=== PATIENT | male | born 1955 | race African-American/Black ===

== ENCOUNTER 2016-08-27 13:22 | Inpatient (IN) | payer OTHER ==
[~2016-08-27] VITALS: Ht 175.3 cm; Wt 60.3 kg
[2016-08-27] MEDS ORDERED: KETOROLAC 30MG/ML VIAL IV STA (15:07)
[2016-08-27] MEDS ORDERED: SODIUM CHLORIDE 0.9% 1,000 ML IV ONE ×2 (15:07→16:30)
[2016-08-27] MEDS ORDERED: VANCOMYCIN 1 G PREMIX 200 ML IV ONE (15:15)
[2016-08-27] MEDS ORDERED: PIPERACILLIN SODIUM/TAZOBACTAM 4.5 G in DEXT 5% WATER 100 ML IV ONE (15:15)
[2016-08-27 15:45] LABS: BASOPHILS % 0.4 % (0.0-2.0); EOSINOPHILS % 0.1 % (0.0-5.0); HEMATOCRIT. 31.3 % (42.0-52.0); LYMPHOCYTES % 12.9 % (20.0-50.0); MEAN CORPUSCULAR HEMOGLOBIN 26.1 pg (28.0-32.0); MEAN CORPUSCULAR VOLUME 81.5 fL (80.0-94.0); MEAN PLATELET VOLUME 7.8 fl (7.4-10.4); MONOCYTES % 7.6 % (2.0-8.0); PLATELET 378 x1000/uL (130-400); RED BLOOD CELL COUNT 3.84 mill/uL (4.7-6.1); WHITE BLOOD COUNT 18.1 x1000/uL (4.5-11.0)
[2016-08-27 15:48] LABS: CHLORIDE 91 mEq/L (98-107); INDEX HEMOLYSI 1 (1-3); INDEX ICTERIC 1 (1-4); INDEX LIPEMIC 1 (1-3)
[2016-08-27 15:50] LABS: INR 1.3
[2016-08-27 15:51] LABS: ALBUMIN 2.3 g/dL (3.4-5.0); ANION GAP 16; CALCIUM 8.7 mg/dL (8.5-10.1); CARBON DIOXIDE 25 mEq/L (21-32); UREA NITROGEN BLOOD 20 mg/dL (7-21)
[2016-08-27 15:53] LABS: ETHANOL BLOOD < 10 mg/dL
[2016-08-27 15:54] LABS: ALANINE AMINOTRANSFERASE 10 IU/L (13-61); eGFR > 60 mL/min (>60)
[2016-08-27 16:01] LABS: LACTIC ACID 2.8 mmol/L (0.4-2.0)
[2016-08-27 16:52] LABS: CLARITY URINE CLEAR (CLEAR); COLOR URINE YELLOW (YELLOW); GLUCOSE URINE 3+ (NEGATIVE); KETONES URINE NEGATIVE (NEGATIVE); LEUKOCYTE ESTERASE URINE NEGATIVE (NEGATIVE); NITRITE URINE NEGATIVE (NEGATIVE); OCCULT BLOOD URINE NEGATIVE (NEGATIVE); PH URINE 5.5 (4.5-8.0); PROTEIN URINE NEGATIVE (NEGATIVE); SPECIFIC GRAVITY URINE 1.028 (1.005-1.030); UROBILINOGEN URINE 0.2 E.U./dL (0.2-1.0)
[2016-08-27 16:54] LABS: BACTERIA URINE NONE SEEN; CALCIUM PHOSPHATE CRYSTALS UR NONE SEEN /lpf; RBC URINE NONE SEEN /hpf (0-2); SQUAMOUS EPITHELIAL CELL URINE NONE SEEN /lpf (RARE/1+); WAXY CASTS URINE NONE SEEN /lpf; WBC URINE NONE SEEN /hpf (0-2); YEAST URINE NONE SEEN
[2016-08-27 17:04] LABS: *AMPHETAMINES SCREEN URINE NEGATIVE (NEGATIVE); *BARBITURATES SCREEN URINE NEGATIVE (NEGATIVE); *BENZODIAZEPINES SCREEN URINE NEGATIVE (NEGATIVE); *COCAINE SCREEN URINE NEGATIVE (NEGATIVE); CANNABINOID URINE SCREEN NEGATIVE (NEGATIVE); ECSTASY MDMA SCREEN URINE NEGATIVE (NEGATIVE); METHADONE URINE SCREEN NEGATIVE (NEGATIVE); OPIATES URINE SCREEN PRESUMTIVE POSITIVE (NEGATIVE); PHENCYCLIDINE URINE SCREEN PRESUMTIVE POSITIVE (NEGATIVE)
[2016-08-27] MEDS ORDERED: INSULIN REGULAR (HUMULIN R) 300UNITS/3ML SUBCUT ONE (18:45)
[2016-08-27] MEDS ORDERED: MORPHINE SULFATE 2 MG/ML CPJ (NOT FOR IM USE) IV PRN (19:45)
[2016-08-27] MEDS ORDERED: ONDANSETRON HCL 4MG/2ML VIAL IV PRN (19:45)
[2016-08-27] MEDS ORDERED: IPRATROPIUM/ALBUTEROL 0.5-3(2.5)MG/3ML NEB INH PRN (19:45)
[2016-08-27] MEDS ORDERED: CLONIDINE 0.1MG TABLET PO PRN (19:45)
[2016-08-27] MEDS: SODIUM CHLORIDE 0.9% 1,000 ML IV SCH (20:19)
[2016-08-27] MEDS ORDERED: DEXTROSE 50% WATER 50ML SYRINGE IV PRN (21:00)
[2016-08-27] MEDS ORDERED: CEFTRIAXONE 2 G PREMIX 50 ML IV NR (21:00)
[2016-08-27 21:15] VITALS: BP 118/70
[2016-08-27] MEDS: BLOOD SUGAR DIAGNOSTIC STRIP TEST SCH (21:36)
[2016-08-27] MEDS: MORPHINE SULFATE 2 MG/ML CPJ (NOT FOR IM USE) IV PRN (21:44)
[2016-08-27] MEDS ORDERED: INSULIN DETEMIR UD 100 UNITS/ML SYR SUBCUT SCH (22:00)
[2016-08-27] MEDS ORDERED: PHEN100C4 PO (22:11)
[2016-08-27] MEDS ORDERED: INSU3INS6 SUBCUT (22:11)
[2016-08-27] MEDS ORDERED: CLON1TAB PO (22:11)
[2016-08-27] MEDS ORDERED: POTASSIUM CHLORIDE 20MEQ TABLET SR PO NR (22:15)
[2016-08-27] MEDS: INSULIN LISPRO 100 UNITS/ML SUBCUT SCH (22:46)
[2016-08-27] MEDS: ENOXAPARIN 40MG/0.4ML SYR SUBCUT SCH (22:47)
[2016-08-27] MEDS: CEFTRIAXONE 2 G in DEXTROSE 5% WATER 50 ML IV SCH (22:47)
[2016-08-27] MEDS: PHENYTOIN SODIUM EXTENDED 100MG CAPSULE PO SCH (22:47)
[2016-08-27] MEDS ORDERED: CEFTRIAXONE 2 G PREMIX 50 ML IV SCH (23:00)
[2016-08-28] VITALS: BP 108/56
[2016-08-28 04:00] VITALS: BP 108/69
[2016-08-28] MEDS: ACETAMINOPHEN 325MG TABLET PO PRN (04:30)
[2016-08-28] MEDS: SODIUM CHLORIDE 0.9% 1,000 ML IV SCH (05:46)
[2016-08-28] MEDS: BLOOD SUGAR DIAGNOSTIC STRIP TEST SCH ×4 (05:50→21:00)
[2016-08-28] MEDS: MORPHINE SULFATE 2 MG/ML CPJ (NOT FOR IM USE) IV PRN ×2 (06:25→12:21)
[2016-08-28] MEDS: INSULIN LISPRO 100 UNITS/ML SUBCUT SCH ×4 (06:29→22:13)
[2016-08-28 08:00] VITALS: BP 113/69
[2016-08-28 08:02] LABS: CHLORIDE 106 mEq/L (98-107); INDEX HEMOLYSI 1 (1-3); INDEX ICTERIC 1 (1-4); INDEX LIPEMIC 1 (1-3)
[2016-08-28 08:06] LABS: BASOPHILS % 0.5 % (0.0-2.0); DIFFERENTIAL COMMENT 0; EOSINOPHILS % 1.6 % (0.0-5.0); HEMATOCRIT. 28.3 % (42.0-52.0); HEMOGLOBIN. 9.1 g/dL (14.0-18.0); LYMPHOCYTES % 18.4 % (20.0-50.0); MEAN CORPUSCULAR HEMOGLOBIN 25.5 pg (28.0-32.0); MEAN CORPUSCULAR HGB CONC 32.3 g/dL (31.0-37.0); MEAN PLATELET VOLUME 7.6 fl (7.4-10.4); MONOCYTES % 9.2 % (2.0-8.0); NEUTROPHILS % 70.3 % (40.0-76.0); PLATELET 406 x1000/uL (130-400); RED BLOOD CELL COUNT 3.58 mill/uL (4.7-6.1); RED CELL DISTRIBUTION WIDTH 16.9 % (11.6-14.6)
[2016-08-28 08:07] LABS: ANION GAP 12; CARBON DIOXIDE 24 mEq/L (21-32); UREA NITROGEN BLOOD 21 mg/dL (7-21); eGFR > 60 mL/min (>60)
[2016-08-28] MEDS: CLONAZEPAM 1MG TABLET PO SCH ×2 (08:57→16:36)
[2016-08-28] MEDS: PHENYTOIN SODIUM EXTENDED 100MG CAPSULE PO SCH ×2 (08:57→16:36)
[2016-08-28 12:00] VITALS: BP 116/66
[2016-08-28] MEDS ORDERED: INSULIN LISPRO 100 UNITS/ML SUBCUT NR (12:15)
[2016-08-28] MEDS ORDERED: LIDOCAINE HCL 1% 20ML VIAL (Pyxis) INJ INFIL NR (14:30)
[2016-08-28 16:00] VITALS: BP 160/92
[2016-08-28] MEDS: VANCOMYCIN 750 MG PREMIX 150 ML IV SCH (16:36)
[2016-08-28 20:00] VITALS: BP 128/80
[2016-08-28] MEDS ORDERED: INSULIN DETEMIR UD 100 UNITS/ML SYR SUBCUT SCH (22:00)
[2016-08-28] MEDS: ENOXAPARIN 40MG/0.4ML SYR SUBCUT SCH (22:05)
[2016-08-28] MEDS: CEFTRIAXONE 2 G in DEXTROSE 5% WATER 50 ML IV SCH (22:05)
[2016-08-29] VITALS (7 sets, daily range): BP systolic 111–136; BP diastolic 73–87
[2016-08-29] MEDS: VANCOMYCIN 750 MG PREMIX 150 ML IV SCH ×2 (00:40→10:00)
[2016-08-29] MEDS: BLOOD SUGAR DIAGNOSTIC STRIP TEST SCH ×4 (06:35→20:49)
[2016-08-29] MEDS: INSULIN LISPRO 100 UNITS/ML SUBCUT SCH ×4 (06:35→20:46)
[2016-08-29] MEDS: PHENYTOIN SODIUM EXTENDED 100MG CAPSULE PO SCH ×3 (09:00→16:36)
[2016-08-29] MEDS: CLONAZEPAM 1MG TABLET PO SCH ×3 (09:00→16:36)
[2016-08-29] MEDS: MORPHINE SULFATE 2 MG/ML CPJ (NOT FOR IM USE) IV PRN ×3 (10:13→20:20)
[2016-08-29 10:52] LABS: BASOPHILS % 0.6 % (0.0-2.0); DIFFERENTIAL COMMENT 0; EOSINOPHILS % 3.6 % (0.0-5.0); HEMATOCRIT. 28.1 % (42.0-52.0); HEMOGLOBIN. 9.1 g/dL (14.0-18.0); LYMPHOCYTES % 28.3 % (20.0-50.0); MEAN CORPUSCULAR HEMOGLOBIN 25.9 pg (28.0-32.0); MEAN CORPUSCULAR HGB CONC 32.4 g/dL (31.0-37.0); MEAN CORPUSCULAR VOLUME 79.7 fL (80.0-94.0); MEAN PLATELET VOLUME 7.5 fl (7.4-10.4); MONOCYTES % 9.6 % (2.0-8.0); NEUTROPHILS % 57.9 % (40.0-76.0); PLATELET 440 x1000/uL (130-400); RED BLOOD CELL COUNT 3.52 mill/uL (4.7-6.1); WHITE BLOOD COUNT 9.2 x1000/uL (4.5-11.0)
[2016-08-29 11:14] LABS: ANION GAP 9; CALCIUM 8.4 mg/dL (8.5-10.1); CARBON DIOXIDE 30 mEq/L (21-32); CHLORIDE 105 mEq/L (98-107); INDEX HEMOLYSI 1 (1-3); INDEX ICTERIC 1 (1-4); INDEX LIPEMIC 1 (1-3); UREA NITROGEN BLOOD 16 mg/dL (7-21); eGFR > 60 mL/min (>60)
[2016-08-29] MEDS ORDERED: INSULIN DETEMIR UD 100 UNITS/ML SYR SUBCUT SCH (13:00)
[2016-08-29] MEDS: VANCOMYCIN 1 G PREMIX 200 ML IV SCH (22:16)
[2016-08-29] MEDS: INSULIN DETEMIR UD 100 UNITS/ML SYR SUBCUT SCH (22:17)
[2016-08-29] MEDS: ENOXAPARIN 40MG/0.4ML SYR SUBCUT SCH (22:18)
[2016-08-29] MEDS: CEFTRIAXONE 2 G in DEXTROSE 5% WATER 50 ML IV SCH (23:19)
[2016-08-30 04:00] VITALS: BP 118/80
[2016-08-30] MEDS: MORPHINE SULFATE 2 MG/ML CPJ (NOT FOR IM USE) IV PRN ×4 (05:54→22:59)
[2016-08-30] MEDS: VANCOMYCIN 1 G PREMIX 200 ML IV SCH ×3 (05:58→21:50)
[2016-08-30] MEDS: BLOOD SUGAR DIAGNOSTIC STRIP TEST SCH ×4 (06:16→21:00)
[2016-08-30] MEDS: INSULIN LISPRO 100 UNITS/ML SUBCUT SCH ×4 (06:22→21:00)
[2016-08-30 06:59] LABS: BASOPHILS % 0.4 % (0.0-2.0); DIFFERENTIAL COMMENT 0; EOSINOPHILS % 3.9 % (0.0-5.0); HEMATOCRIT. 27.5 % (42.0-52.0); HEMOGLOBIN. 8.9 g/dL (14.0-18.0); LYMPHOCYTES % 36.9 % (20.0-50.0); MEAN CORPUSCULAR HEMOGLOBIN 25.8 pg (28.0-32.0); MEAN CORPUSCULAR HGB CONC 32.4 g/dL (31.0-37.0); MEAN CORPUSCULAR VOLUME 79.6 fL (80.0-94.0); MEAN PLATELET VOLUME 7.4 fl (7.4-10.4); MONOCYTES % 10.5 % (2.0-8.0); NEUTROPHILS % 48.3 % (40.0-76.0); PLATELET 463 x1000/uL (130-400); RED BLOOD CELL COUNT 3.45 mill/uL (4.7-6.1); WHITE BLOOD COUNT 8.1 x1000/uL (4.5-11.0)
[2016-08-30 07:14] LABS: ANION GAP 12; CALCIUM 8.9 mg/dL (8.5-10.1); CARBON DIOXIDE 30 mEq/L (21-32); CHLORIDE 102 mEq/L (98-107); INDEX HEMOLYSI 1 (1-3); INDEX ICTERIC 1 (1-4); INDEX LIPEMIC 1 (1-3); UREA NITROGEN BLOOD 15 mg/dL (7-21); eGFR > 60 mL/min (>60)
[2016-08-30 08:00] VITALS: BP 128/80
[2016-08-30] MEDS: PHENYTOIN SODIUM EXTENDED 100MG CAPSULE PO SCH ×2 (09:15→17:01)
[2016-08-30] MEDS: CLONAZEPAM 1MG TABLET PO SCH ×2 (09:15→17:01)
[2016-08-30] MEDS: INSULIN DETEMIR UD 100 UNITS/ML SYR SUBCUT SCH ×2 (09:17→21:53)
[2016-08-30 12:10] VITALS: BP 131/79
[2016-08-30 16:00] VITALS: BP 127/73
[2016-08-30 20:00] VITALS: BP 112/66
[2016-08-30] MEDS: ENOXAPARIN 40MG/0.4ML SYR SUBCUT SCH (21:51)
[2016-08-30] MEDS: CEFTRIAXONE 2 G in DEXTROSE 5% WATER 50 ML IV SCH (22:57)
[2016-08-30 23:54] VITALS: BP 112/65
[2016-08-31 04:00] VITALS: BP 130/84
[2016-08-31] MEDS: VANCOMYCIN 1 G PREMIX 200 ML IV SCH (05:28)
[2016-08-31] MEDS: MORPHINE SULFATE 2 MG/ML CPJ (NOT FOR IM USE) IV PRN ×2 (06:07→20:59)
[2016-08-31] MEDS: BLOOD SUGAR DIAGNOSTIC STRIP TEST SCH ×4 (06:35→21:02)
[2016-08-31] MEDS: INSULIN LISPRO 100 UNITS/ML SUBCUT SCH ×4 (06:48→21:01)
[2016-08-31 08:00] VITALS: BP 117/85
[2016-08-31] MEDS: CLONAZEPAM 1MG TABLET PO SCH ×2 (08:55→17:22)
[2016-08-31] MEDS: PHENYTOIN SODIUM EXTENDED 100MG CAPSULE PO SCH ×2 (08:55→17:21)
[2016-08-31] MEDS: INSULIN DETEMIR UD 100 UNITS/ML SYR SUBCUT SCH ×2 (10:17→21:02)
[2016-08-31 12:00] VITALS: BP 127/85
[2016-08-31 16:00] VITALS: BP 130/75
[2016-08-31] MEDS: ACETAMINOPHEN 325MG TABLET PO PRN (17:22)
[2016-08-31 20:00] VITALS: BP 117/67
[2016-08-31] MEDS: ENOXAPARIN 40MG/0.4ML SYR SUBCUT SCH (21:05)
[2016-08-31] MEDS: CEFTRIAXONE 2 G in DEXTROSE 5% WATER 50 ML IV SCH (23:17)
[2016-09-01] VITALS: BP 105/65
[2016-09-01 04:00] VITALS: BP_SYST 105; BP_SYST 129; BP_DIAS 65; BP_DIAS 78
[2016-09-01] MEDS: MORPHINE SULFATE 2 MG/ML CPJ (NOT FOR IM USE) IV PRN ×4 (04:19→22:47)
[2016-09-01] MEDS: INSULIN LISPRO 100 UNITS/ML SUBCUT SCH ×4 (06:44→21:21)
[2016-09-01] MEDS: BLOOD SUGAR DIAGNOSTIC STRIP TEST SCH ×4 (06:44→21:00)
[2016-09-01 08:00] VITALS: BP 130/79
[2016-09-01] MEDS: CLONAZEPAM 1MG TABLET PO SCH ×2 (08:25→17:25)
[2016-09-01] MEDS: PHENYTOIN SODIUM EXTENDED 100MG CAPSULE PO SCH ×2 (08:25→17:25)
[2016-09-01] MEDS: INSULIN DETEMIR UD 100 UNITS/ML SYR SUBCUT SCH ×2 (09:40→22:11)
[2016-09-01 12:00] VITALS: BP 125/58
[2016-09-01 20:00] VITALS: BP 100/70
[2016-09-01] MEDS: FAMOTIDINE 20MG TABLET PO SCH (21:19)
[2016-09-01] MEDS: CEPHALEXIN 500MG CAPSULE PO SCH (21:23)
[2016-09-01] MEDS: ENOXAPARIN 40MG/0.4ML SYR SUBCUT SCH (22:12)
[2016-09-02 04:00] VITALS: BP 120/60
[2016-09-02] MEDS: CEPHALEXIN 500MG CAPSULE PO SCH ×3 (05:50→22:00)
[2016-09-02 05:54] LABS: BASOPHILS % 0.6 % (0.0-2.0); EOSINOPHILS % 3.4 % (0.0-5.0); HEMATOCRIT. 27.5 % (42.0-52.0); LYMPHOCYTES % 35.3 % (20.0-50.0); MEAN CORPUSCULAR HEMOGLOBIN 26.2 pg (28.0-32.0); MEAN CORPUSCULAR HGB CONC 32.6 g/dL (31.0-37.0); MEAN CORPUSCULAR VOLUME 80.5 fL (80.0-94.0); MEAN PLATELET VOLUME 7.8 fl (7.4-10.4); MONOCYTES % 8.5 % (2.0-8.0); NEUTROPHILS % 52.2 % (40.0-76.0); PLATELET 439 x1000/uL (130-400); RED BLOOD CELL COUNT 3.42 mill/uL (4.7-6.1); RED CELL DISTRIBUTION WIDTH 17.2 % (11.6-14.6); WHITE BLOOD COUNT 10.5 x1000/uL (4.5-11.0)
[2016-09-02 06:32] LABS: ANION GAP 12; CALCIUM 8.7 mg/dL (8.5-10.1); CARBON DIOXIDE 27 mEq/L (21-32); CHLORIDE 105 mEq/L (98-107); INDEX HEMOLYSI 2 (1-3); INDEX ICTERIC 1 (1-4); INDEX LIPEMIC 1 (1-3)
[2016-09-02 06:36] LABS: UREA NITROGEN BLOOD 31 mg/dL (7-21); eGFR > 60 mL/min (>60)
[2016-09-02] MEDS: MORPHINE SULFATE 2 MG/ML CPJ (NOT FOR IM USE) IV PRN ×3 (06:50→17:55)
[2016-09-02] MEDS: BLOOD SUGAR DIAGNOSTIC STRIP TEST SCH ×4 (06:56→20:18)
[2016-09-02 08:00] VITALS: BP 134/87
[2016-09-02] MEDS: CLONAZEPAM 1MG TABLET PO SCH (08:40)
[2016-09-02] MEDS: FAMOTIDINE 20MG TABLET PO SCH ×2 (08:40→20:15)
[2016-09-02] MEDS: PHENYTOIN SODIUM EXTENDED 100MG CAPSULE PO SCH ×2 (08:43→16:34)
[2016-09-02] MEDS: INSULIN DETEMIR UD 100 UNITS/ML SYR SUBCUT SCH ×2 (09:47→22:00)
[2016-09-02] MEDS ORDERED: CEPH500C2 PO (09:53)
[2016-09-02] MEDS ORDERED: HYDR-523 PO (09:53)
[2016-09-02] MEDS ORDERED: INSULIN LISPRO 100 UNITS/ML SUBCUT NR (11:30)
[2016-09-02] MEDS: INSULIN LISPRO 100 UNITS/ML SUBCUT SCH ×3 (11:56→21:00)
[2016-09-02 20:00] VITALS: BP 119/71
[2016-09-02] MEDS: ENOXAPARIN 40MG/0.4ML SYR SUBCUT SCH (22:00)
[2016-09-03] VITALS: BP 128/73
[2016-09-03] MEDS: MORPHINE SULFATE 2 MG/ML CPJ (NOT FOR IM USE) IV PRN ×3 (00:13→11:09)
[2016-09-03 04:00] VITALS: BP 124/76
[2016-09-03] MEDS: CEPHALEXIN 500MG CAPSULE PO SCH (05:51)
[2016-09-03] MEDS: BLOOD SUGAR DIAGNOSTIC STRIP TEST SCH ×2 (06:23→11:13)
[2016-09-03] MEDS: INSULIN LISPRO 100 UNITS/ML SUBCUT SCH ×2 (06:58→12:22)
[2016-09-03 08:00] VITALS: BP 120/71
[2016-09-03] MEDS: PHENYTOIN SODIUM EXTENDED 100MG CAPSULE PO SCH (08:50)
[2016-09-03] MEDS: FAMOTIDINE 20MG TABLET PO SCH (08:51)
[2016-09-03] MEDS: INSULIN DETEMIR UD 100 UNITS/ML SYR SUBCUT SCH (10:00)
[2016-09-03 12:00] VITALS: BP 127/75
[2016-09-03 13:03] VITALS: BP 127/75
== END 2016-09-03 13:55 | disposition home or self-care (01) | DRG 720 ==
LOC: ER 13:41 → 5WST 18:35 → SUPCPDRO 19:43 → 8WST 08-29 15:36
PROVIDERS: ADMIT Internal Medicine Nephrology; ATTEND Internal Medicine Nephrology
PROC: 0JBG0ZZ Excision of Right Lower Arm Subcutaneous Tissue and Fascia, Open Approach (ICD-10-PCS; principal; 2016-08-28)
DX: A41.9 Sepsis, unspecified organism (principal); E43 Unspecified severe protein-calorie malnutrition; E11.65 Type 2 diabetes mellitus with hyperglycemia; L02.413 Cutaneous abscess of right upper limb; F11.10 Opioid abuse, uncomplicated; F17.200 Nicotine dependence, unspecified, uncomplicated; I10 Essential (primary) hypertension; J44.9 Chronic obstructive pulmonary disease, unspecified; D64.9 Anemia, unspecified; L03.113 Cellulitis of right upper limb; F19.90 Other psychoactive substance use, unspecified, uncomplicated; Z59.0 Homelessness; Z91.19 Patient's noncompliance with other medical treatment and regimen; Z68.1 Body mass index [BMI] 19.9 or less, adult
CPT/HCPCS: 36415; 71010; 73030; 73221; 80048; 80053; 80202; 80305; 81001; 82010; 82962; 83036; 83605; 85025; 85610; 87040; 87070; 87077; 87086; 87186; 87205; 93005; 96361; 96365; 96366; 96372; 96375; 99285; G0482; J0696; J1650; J1815; J1885; J2270; J2543; J3370; J3490; J7030; J7040; J7060

== ENCOUNTER 2023-02-06 17:25 | Emergency (ER) | payer MEDICARE, MEDICAID ==
[~2023-02-06] VITALS: Ht 175.3 cm; Wt 68.0 kg
[~2023-02-06 17:25] MED LIST: CEPH500C2 PO; CLON1TAB PO; HYDR-523 PO; INSU3INS6 SUBCUT; PHEN100C4 PO
[2023-02-06 17:34] VITALS: O2SAT 98
[2023-02-06] MEDS ORDERED: ONDANSETRON HCL 4MG/2ML INJ IV NR (17:41)
[2023-02-06] MEDS ORDERED: MORPHINE SULFATE 4 MG/ML CPJ (NOT FOR IM USE) IV STA (17:41)
[2023-02-06] MEDS ORDERED: ONDANSETRON HCL 4MG/2ML INJ IV STA (17:41)
[2023-02-06] MEDS ORDERED: MORPHINE SULFATE 4 MG/ML CPJ (NOT FOR IM USE) IV NR (17:41)
[2023-02-06] MEDS ORDERED: PIPERACILLIN/TAZ 3.375G PREMIX 50 ML IV NR (17:45)
[2023-02-06] MEDS ORDERED: VANCOMYCIN 1G PREMIX 200 ML IV ONE (17:45)
[2023-02-06] MEDS ORDERED: PIPERACILLIN/TAZ 3.375G PREMIX 50 ML IV ONE (17:45)
[2023-02-06 19:22] LABS: BASOPHILS % 0.4 % (0.0-2.0); HEMATOCRIT. 34.2 % (42.0-52.0); HEMOGLOBIN. 11.5 g/dL (14.0-18.0); MEAN CORPUSCULAR HEMOGLOBIN 28.5 pg (28.0-32.0); MEAN CORPUSCULAR HGB CONC 33.8 g/dL (31.0-37.0); MEAN CORPUSCULAR VOLUME 84.4 fL (80.0-94.0); MEAN PLATELET VOLUME 8.3 fl (7.4-10.4); MONOCYTES % 10.5 % (2.0-8.0); NEUTROPHILS % 64.1 % (40.0-76.0); PLATELET 156 x1000/uL (130-400); RED BLOOD CELL COUNT 4.05 mill/uL (4.7-6.1); RED CELL DISTRIBUTION WIDTH 19.8 % (11.6-14.6); WHITE BLOOD COUNT 9.5 x1000/uL (4.5-11.0)
[2023-02-06 19:28] LABS: CHLORIDE 97 mEq/L (98-107); INDEX HEMOLYSI 1 (1-3); INDEX ICTERIC 1 (1-4); INDEX LIPEMIC 1 (1-3); POTASSIUM 4.7 mEq/L (3.5-5.1); SODIUM 134 mEq/L (136-145)
[2023-02-06 19:38] LABS: ALANINE AMINOTRANSFERASE 27 IU/L (13-61); ALBUMIN 3.4 g/dL (3.4-5.0); ASPARTATE AMINOTRANSFERASE 26 IU/L (15-37); BILIRUBIN TOTAL 0.4 mg/dL (0.1-1.0); CALCIUM 7.2 mg/dL (8.5-10.1); CARBON DIOXIDE 29 mEq/L (21-32); GLUCOSE 79 mg/dL (70-105); NT PRO B-TYPE NATRIURETIC PEP 3220 pg/mL (5-125); PROTEIN TOTAL 7.7 g/dL (6.0-8.3); UREA NITROGEN BLOOD 47 mg/dL (7-21)
[2023-02-06 19:40] LABS: INR 1.1; PARTIAL THROMBOPLASTIN TIME 24.9 sec (23.4-31.0); PROTHROMBIN TIME 11.5 sec (9.6-11.0)
[2023-02-06 22:31] VITALS: BP 158/89; PULSE 67; RESP 20; TEMP 97.2
== END 2023-02-06 23:11 | disposition left against medical advice (07) ==
LOC: ER 17:25 → CANBEDREQ 02-07 04:38
DX: M79.671 Pain in right foot (principal); I12.0 Hypertensive chronic kidney disease with stage 5 chronic kidney disease or end stage renal disease; E11.22 Type 2 diabetes mellitus with diabetic chronic kidney disease; N18.6 End stage renal disease; F15.10 Other stimulant abuse, uncomplicated; Z79.899 Other long term (current) drug therapy
CPT/HCPCS: 80053; 83880; 83605; 85025; 85610; 85730; 86850; 86900; 86901; 87040; 36415; 84145; 71045; 73630; 93005; 99285; J2543; J3370; Z7610 ×2; J2270; J2405

== ENCOUNTER 2023-02-08 17:08 | Emergency (ER) | payer MEDICARE, MEDICAID ==
[~2023-02-08] VITALS: Ht 170.2 cm; Wt 50.0 kg
[2023-02-08 17:29] VITALS: BP 179/92; PULSE 74; RESP 18; O2SAT 100
[2023-02-08 20:48] LABS: BASOPHILS % 0.4 % (0.0-2.0); EOSINOPHILS % 1.5 % (0.0-5.0); HEMATOCRIT. 31.9 % (42.0-52.0); HEMOGLOBIN. 10.7 g/dL (14.0-18.0); LYMPHOCYTES % 15.8 % (20.0-50.0); MEAN CORPUSCULAR HEMOGLOBIN 28.8 pg (28.0-32.0); MEAN CORPUSCULAR HGB CONC 33.6 g/dL (31.0-37.0); MEAN CORPUSCULAR VOLUME 85.6 fL (80.0-94.0); MEAN PLATELET VOLUME 8.3 fl (7.4-10.4); MONOCYTES % 8.6 % (2.0-8.0); NEUTROPHILS % 73.7 % (40.0-76.0); PLATELET 168 x1000/uL (130-400); RED BLOOD CELL COUNT 3.73 mill/uL (4.7-6.1); RED CELL DISTRIBUTION WIDTH 18.5 % (11.6-14.6); WHITE BLOOD COUNT 12.9 x1000/uL (4.5-11.0)
[2023-02-08 21:05] LABS: CALCIUM 7.4 mg/dL (8.5-10.1)
[2023-02-08] MEDS ORDERED: MUPI1OIN4 TP (21:05)
[2023-02-08 21:11] LABS: CREATININE 6.5 mg/dL (0.6-1.3)
[2023-02-08] MEDS ORDERED: ACETAMINOPHEN 325MG TABLET PO ONE (21:15)
[2023-02-08 21:54] VITALS: TEMP 97.4
== END 2023-02-09 05:20 | disposition home or self-care (01) ==
LOC: ER 19:40
DX: S99.921A Unspecified injury of right foot, initial encounter (principal); I10 Essential (primary) hypertension; D64.9 Anemia, unspecified; M25.571 Pain in right ankle and joints of right foot; E11.9 Type 2 diabetes mellitus without complications; F15.10 Other stimulant abuse, uncomplicated; X58.XXXA Exposure to other specified factors, initial encounter; Y93.89 Activity, other specified; Y92.89 Other specified places as the place of occurrence of the external cause; Y99.8 Other external cause status
CPT/HCPCS: 36415; 73610; 73630; 80048; 85025; 99284